=== PATIENT | male | born 1960 | race Caucasian/White ===

== ENCOUNTER 2019-02-20 16:07 | Inpatient (IN) | payer BC ==
[~2019-02-20 16:07] MED LIST: Adenosine 6 MG/2 ML VIAL ONE
[2019-02-20] MEDS ORDERED: Cefepime 2 GM VIAL ONE (16:32)
[2019-02-20 17:01] LABS: #Basophils 0.1 thou/uL (0.0-0.2); #Eosinphils 0.2 thou/uL (0.0-0.7); #Lymphocytes 1.8 thou/uL (1.20-3.40); #Neutrophils 9.3 thou/uL (1.40-6.50); %Basophils 0.7 % (0.0-1.0); %Eosinophils 1.9 % (0.0-10.0); %Lymphocytes 14.2 % (21.0-51.0); %Monocytes 8.1 % (0.0-10.0); %Neutrophils 75.1 % (42.0-75.0); Hemoglobin 14.9 g/dL (14.0-18.0); Mean Corpuscular HGB CONC 33.8 g/dL (32.0-36.0); Mean Corpuscular Hemoglobin 30.2 pg (27.0-31.0); Mean Corpuscular Volume 89.3 fL (78.0-98.0); Mean Platelet Volume 7.9 fL (7.4-10.4); Platelet Count 392 thou/uL (130-400); RBC Distribution Width 12.7 % (11.5-14.5); Red Blood Cell (RBC) Count 4.96 mill/uL (4.70-6.10); White Blood Cell (WBC) Count 12.4 thou/uL (4.8-10.8)
[2019-02-20 17:24] LABS: ALT (SGPT) 18 U/L (8-55); AST (SGOT) 17 U/L (5-34); Alkaline Phosphatase 83 U/L (40-110); Anion Gap 13 mmol/L (10-20); BUN (Urea Nitrogen) 14 mg/dL (8.4-25.7); Bilirubin, Total 0.3 mg/dL (0.2-1.2); Calc. Creatinine Clearance 0 mL/min (70-130); Calcium 9.8 mg/dL (7.8-10.44); Carbon Dioxide 28 mmol/L (22-29); Chloride 96 mmol/L (98-107); Estimated GFR-MDRD 51; Globulin 4.3 g/dL (2.4-3.5); Glucose 120 mg/dL (70-105); Potassium 4.2 mmol/L (3.5-5.1); Protein, Total 8.3 g/dL (6.0-8.3); Sodium 133 mmol/L (136-145)
--- NOTE | 2019-02-20 18:33 | HP ---
PRIMARY CARE PHYSICIAN: Arianna Lancaster MD CHIEF COMPLAINT: "I think I may have gangrene in my toe." HISTORY OF PRESENT ILLNESS: Mr. Nash is a very pleasant 58-year-old gentleman, who has a history of diabetes mellitus as well as coronary artery disease. He says that his problems with his feet started back in May. He says he typically wears work boots and he noticed that he was developing some blisters. These would kind of come and go and he says that the boots were fit relatively new and had not been worn-in. He says that he tried using bandages and antibiotic cream, but eventually the area opened up. He said originally it started with just some clear drainage and occasionally some blood, but then in the last week, it started to ooze pus and 2 days ago, he noticed that the color changed to a grayish color. This concerned him and for this reason, he came to the ER for evaluation. He originally went to Urgent Care and was given a prescription for Bactrim and Omnicef, but he says he just went today, but at some point, he must have been more concerned and came to the ER for further evaluation. He does say that he does admit to having some fever earlier in the week. He does not notice any pain as he says he has had numbness and tingling in his feet ever since 2010 when he had his bypass surgery. Otherwise, he has no other significant complaints. He also denies any known trauma to the area. REVIEW OF SYSTEMS: All systems were reviewed and are negative except for that mentioned in the history of present illness. PAST MEDICAL HISTORY: Significant for diabetes mellitus and coronary artery disease. PAST SURGICAL HISTORY: He has had an appendectomy, three-vessel CABG, and he says he has had an angiogram of his heart and was told everything was okay. He says "recently." ALLERGIES: NO KNOWN DRUG ALLERGIES. 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 He is a former smoker. He quit in 2010. He says prior to that he smoked for 30 years up to 2 packs a day. Denies any alcohol use. He is and has 2 children. FAMILY HISTORY: Significant for heart disease in his father and grandfather. CURRENT MEDICATIONS: Include; 1. Vitamin D3 of 1000 units daily. 2. Aspirin 81 mg daily. 3. Carvedilol 3.125 mg twice a day. 4. Crestor 40 mg daily. 5. Lasix 20 mg daily. 6. Metformin 1000 mg twice a day. 7. Omeprazole 20 mg daily. 8. Ramipril 2.5 mg twice daily. 9. Spironolactone 25 mg daily. 10. Glimepiride 2 mg daily. 11. Plavix 75 mg a day. 12. Recently Omnicef 300 mg twice a day. 13. Bactrim DS one tablet twice daily. PHYSICAL EXAMINATION: GENERAL: He is alert and oriented. He appears to be in no acute distress. He is well developed and well nourished. VITAL SIGNS: Blood pressure was 159/59, heart rate 85, respiratory rate of 18, and temperature is 98.8. HEENT: Pupils are equal, round, and reactive. Extraocular muscles are intact. Sclerae anicteric. Throat, no erythema, no exudates. NECK: No adenopathy. No bruits. LUNGS: Clear to auscultation. There is no wheezing, no rales, no rhonchi. CARDIOVASCULAR: He has a normal S1 and S2. I did not appreciate an S3 or S4. No murmurs, clicks, or rubs. ABDOMEN: Obese. It is soft, nontender, and nondistended. Positive for bowel sounds. There is no rebound. No guarding. No organomegaly. EXTREMITIES: On his extremities, on the left lower extremity, he has some swelling in the left leg with some erythema coming from the dorsum of the foot all the way up to the mid calf. He did not have any areas of fluctuance. There is some mild warmth. He does have a callus large on the plantar surface of both large toes and also on the lateral aspect of the toe. The area is unroof, it is about 0.5 cm deep and there is some serosanguinous drainage. I was not able to express any pus. He has very good dorsalis pedis pulses bilaterally. Good capillary refill. NEUROLOGIC: The exam is grossly nonfocal. SKIN AND INTEGUMENT: No significant skin changes other than previously mentioned under musculoskeletal. LABORATORY DATA: He had a CBC in which the white blood cell count was 12.4, hemoglobin 14.9, hematocrit is 44.3, and platelet count is 392. On his chemistry panel; the sodium is 133, potassium 4.2, chloride is 96, CO2 is 28, BUN of 14, creatinine 1.42, and glucose is 120. It is reported he had a CT scan of the foot, which was suspicious for osteomyelitis. However, I do not have that report available to me right now. ASSESSMENT AND PLAN: This is a 58-year-old gentleman, who is being admitted for osteomyelitis of the toe. He will be admitted and started on broad-spectrum IV antibiotics. Due to the evidence of osteomyelitis, we will consult General Surgery. He likely will need a Infectious Disease consult as well. He appears to have good vascular supply clinically to the foot. Therefore, we will forego doing any vascular studies at this time. 1. Diabetes mellitus. We will restart his home medications with the exception of the metformin for now and place him on a sliding scale. 2. Coronary artery disease. This appears to be clinically stable. We will get a baseline EKG, if it has not yet been done in the event that he has to undergo surgery, but he does not give any symptoms of angina. 3. Chronic heart failure, unknown type. I suspect systolic heart failure given the medications. This appears to be clinically compensated. 4. The patient will be placed on deep venous thrombosis and gastrointestinal prophylaxis. Job ID: [id number]
[2019-02-20] MEDS ORDERED: Ondansetron ODT 4 MG TAB SL PRN (19:17)
[2019-02-20] MEDS ORDERED: Ondansetron PF 4 MG/2 ML Vial IVP PRN (19:17)
[2019-02-20] MEDS ORDERED: Acetaminophen 325 MG TAB PO PRN ×2 (19:17→19:19)
[2019-02-20] MEDS ORDERED: HumaLOG 300 UNITS/3 ML VIAL SC PRN ×2 (19:19)
[2019-02-20] MEDS ORDERED: HYDROcodone/Acetaminophen 5/325 mg Tablet PO PRN (19:19)
[2019-02-20] MEDS ORDERED: Dextrose 50% Abboject 50 ML SYRINGE SLOW IVP PRN (19:19)
[2019-02-20] MEDS ORDERED: Dextrose 5% in Water 1,000 ML IV PRN (19:19)
[2019-02-20] MEDS: metroNIDAZOLE 500 MG in Premix Bag 1 BAG IVPB SCH (21:11)
[2019-02-21] MEDS: Cefepime 1 GM in Sodium Chloride 0.9% 100 ML IVPB SCH ×3 (04:38→22:11)
[2019-02-21] MEDS: metroNIDAZOLE 500 MG in Premix Bag 1 BAG IVPB SCH ×3 (05:09→22:11)
[2019-02-21 05:45] LABS: #Eosinphils 0.3 thou/uL (0.0-0.7); #Lymphocytes 1.5 thou/uL (1.20-3.40); #Neutrophils 6.1 thou/uL (1.40-6.50); %Basophils 0.4 % (0.0-1.0); %Eosinophils 3.5 % (0.0-10.0); %Lymphocytes 16.8 % (21.0-51.0); %Monocytes 10.7 % (0.0-10.0); %Neutrophils 68.6 % (42.0-75.0); Hemoglobin 13.3 g/dL (14.0-18.0); Mean Corpuscular HGB CONC 33.1 g/dL (32.0-36.0); Mean Corpuscular Hemoglobin 29.5 pg (27.0-31.0); Mean Platelet Volume 7.8 fL (7.4-10.4); Platelet Count 332 thou/uL (130-400); RBC Distribution Width 12.7 % (11.5-14.5); White Blood Cell (WBC) Count 8.9 thou/uL (4.8-10.8)
[2019-02-21 06:06] LABS: Anion Gap 10 mmol/L (10-20); BUN (Urea Nitrogen) 12 mg/dL (8.4-25.7); Calc. Creatinine Clearance 109 mL/min (70-130); Carbon Dioxide 28 mmol/L (22-29); Chloride 102 mmol/L (98-107); Estimated GFR-MDRD 63; Glucose 128 mg/dL (70-105); Potassium 4.2 mmol/L (3.5-5.1); Sodium 136 mmol/L (136-145)
[2019-02-21] MEDS: Vancomycin 1.5 GRAM/300 ML BAG 1.5 GM in Premix Bag 1 BAG IVPB SCH ×2 (08:33→19:27)
[2019-02-21] MEDS: Enoxaparin Sodium 40 MG/0.4 ML SYRINGE SC SCH (08:34)
[2019-02-21] MEDS ORDERED: Magnevist 469MG/ML 20 ML VIAL ONE (13:40)
--- NOTE | 2019-02-21 14:24 | PDOC.HOSPP ---
- Subjective Encounter Date: 02/21/19 Encounter Time: 14:22 Subjective: Mr. Nash was seen today in follow-up of diabetic foot infection. He does not have any new complaints. He notes decreased swelling in the left leg. - Objective Vital Signs & Weight: Vital Signs (12 hours) Temp Pulse Resp BP BP Pulse Ox 02/21/19 10:49 98.2 F 78 18 104/54 L 94 L 02/21/19 08:44 94 L 02/21/19 07:48 98.2 F 69 18 103/67 94 L 02/21/19 03:33 98.4 F 72 18 95/62 92 L Weight Weight 250 lb 3.594 oz I&O: 02/20/19 02/21/19 02/22/19 06:59 06:59 06:59 Intake Total 1350 Balance 1350 Result Diagrams: 02/21/19 05:30 02/21/19 05:30 Additional Labs: Accuchecks 02/21/19 02/21/19 02/20/19 10:49 03:39 20:15 POC Glucose 172 H 150 H 92 Hospitalist ROS - Medication Medications: Active Medications Generic Name Dose Route Start Last Admin Trade Name Freq PRN Reason Stop Dose Admin Enoxaparin Sodium 40 mg 02/21/19 09:00 02/21/19 08:34 Lovenox SC 40 mg 0900 ANDREZ Administration Cefepime HCl 1 gm/ Sodium 100 mls @ 200 mls/hr 02/21/19 05:00 02/21/19 04:38 Chloride IVPB 100 mls 0500,1700 ANDREZ Administration Metronidazole 500 mg/ Device 100 mls @ 100 mls/hr 02/20/19 22:00 02/21/19 13: 36 IVPB 100 mls Q8HR ANDREZ Administration Vancomycin HCl 1.5 gm/ Device 300 mls @ 200 mls/hr 02/21/19 08:00 02/21/19 08 :33 IVPB 300 mls 0800,2000 ANDREZ Administration Pantoprazole Sodium 40 mg 02/21/19 09:00 02/21/19 08:34 Protonix PO 40 mg DAILY ANDREZ Administration Sodium Chloride 10 ml 02/20/19 19:17 02/21/19 08:38 Flush - Normal Saline IVF 10 ml PRN PRN Administration Saline Flush - Exam Eye: PERRL Heart: RRR, no murmur, no gallops, no rubs, normal peripheral pulses Respiratory: CTAB, no wheezes, no rales, no ronchi, normal chest expansion Gastrointestinal: soft, non-tender, non-distended, normal bowel sounds, no palpable masses, no hepatomegaly, no splenomegaly Extremities: no cyanosis (good pulses, dorsalis pedis, bilaterally. toe is dressed), 1+ LE edema Hosp A/P (1) Diabetic infection of left foot Code(s): E11.628 - TYPE 2 DIABETES MELLITUS WITH OTHER SKIN COMPLICATIONS; L08.9 - LOCAL INFECTION OF THE SKIN AND SUBCUTANEOUS TISSUE, UNSP Status: Acute (2) Diabetes mellitus type 2 in obese Code(s): E11.69 - TYPE 2 DIABETES MELLITUS WITH OTHER SPECIFIED COMPLICATION; E66.9 - OBESITY, UNSPECIFIED Status: Acute (3) CAD (coronary artery disease) Code(s): I25.10 - ATHSCL HEART DISEASE OF [place] CORONARY ARTERY W/O ANG PCTRS Status: Chronic - Plan * Diabetic foot infection-continue IV antibiotics * MRI has been ordered by Dr. Dalton * DM-blood glucose is a bit elevated- will continue to hold Metformin for now, and continue Amaryl and SSI * Coronary Artery Disease- stable- EKG reviewed- Q wave in II and AVF, and TWI in I and AVL * General Surgery also consulted
--- NOTE | 2019-02-21 17:34 | CON ---
DATE OF CONSULTATION: 02/21/2019 REASON FOR CONSULTATION: Left first toe inflammatory process. HISTORY OF PRESENT ILLNESS: A 58-year-old gentleman with history of coronary artery disease with prior bypass graft surgery as well as type 2 diabetes mellitus and neuropathy in lower extremities, who has had a chronic area of ulceration in the medial aspect of the left first toe, which now has progressed to overt inflammatory changes with swelling of the toe, that led to admission. He has had initiation of broad-spectrum antimicrobial coverage. It does not look like any samples from the toe was submitted. The patient otherwise feels pretty well. He denies any headaches, visual symptoms, sore throat, odynophagia, or dysphagia. No cough or sputum production. No chest pain. No abdominal pain or diarrhea. No genitourinary symptoms. No other joint symptoms. No neurological symptoms other than neuropathic symptoms. PAST MEDICAL HISTORY: Includes type 2 diabetes, coronary artery disease, bypass graft surgery, and neuropathy. PAST SURGICAL HISTORY: Appendectomy. SOCIAL HISTORY: Former smoker, quit less than 10 years ago. Lives alone. 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 ALLERGIES: NONE. MEDICATIONS: 1. Tylenol. 2. [place]. 3. Ecotrin. 4. Coreg. 5. Cefepime. 6. Plavix. 7. Dextrose. 8. Lovenox. 9. Lasix. 10. Amaryl. 11. Glucagon. 12. Insulin. 13. Flagyl. 14. Vancomycin. PHYSICAL EXAMINATION: VITAL SIGNS: Normal. SKIN: Shows the area of inflammatory changes with an ulcerated area in the medial aspect of the left first toe at the base of the distal phalanx. I tried to probe the area, and I could not reach any bone. There is erythema, which is moderate around the area. The erythema extends to the forefoot medial aspect towards the third toe. LYMPHATICS: No lymphadenopathy. HEENT: Noncontributory. Teeth in good shape. NECK: Supple. No jugular vein distention. LUNGS: Symmetric, clear breath sounds. HEART: S1 and S2. Regular rate. No S3 or S4. ABDOMEN: Soft. Not distended or tender. No ascites. No bladder distention. EXTREMITIES: Pulses are excellent in the lower extremities. No edema. NEUROLOGIC: Nonfocal including cognitive function. LABORATORY DATA: White cell count 12.4 and 8.9, hemoglobin 14.9, platelets 392. Creatinine 1.42 and 1.19, GFR 63. Globulin 4.3. Microbiology with pending blood cultures, and I have submitted a sample from the foot for cultures as well. ASSESSMENT: Type 2 diabetes, neuropathy, and progression of chronic ulcer in the medial aspect of the left first toe with overt inflammatory changes and swelling. Possibility of osteomyelitis is present including septic arthritis. MRI of the left foot with contrast, and then further management decision according to the results of culture and MRI. Probably, we will need a PICC line and protracted antimicrobial therapy, but there is a chance for oral antimicrobials if MRI is negative for osteomyelitis and the cultures demonstrate susceptible pathogens. Job ID: [id number]
--- NOTE | 2019-02-21 18:25 | MRI ---
MRI left foot with and without contrast: DATE: 02/21/2019 HISTORY: 58-year-old male with diabetic foot ulcer and soft tissue edema swelling of great toe. The findings were text and to Dr. Chidi Dalton by TIGER DIRECT at 6:20 PM 02/21/2019, then by direct telephone call at 6:22 PM 02/21/2019. FINDINGS: There is diffuse bone marrow edema (T1 hypointense signal, T2 and STIR hyperintense signal), and diff usely abnormally strong marrow enhancement, involving the entire first proximal phalanx and entire first distal phalanx, representing osteomyelitis. There is diffuse soft tissue edema with enhancement surrounding these bones representing cellulitis. There is stephanie osseous destruction of portions of the medial distal tuft, medial base, and plantar la teral base of the first distal phalanx. There is a focal fluid collection in the soft tissues at the medial aspect of the great toe,. The david n portion of this abscess measures approximately 1 x 1.3 x 1.3 cm. There is extension of this fluid into the first interphalangeal joint space, representing septic arthritis. The first metatarsal is not involved. The second, third, fourth, and fifth metatarsals, cuneiforms, c uboid, and navicular, are not involved. Talus is not involved. Posterior aspect of the talus, and at posterior aspect of calcaneus were not included on the scan. IMPRESSION: 1. Osteomyelitis of the first distal phalanx and first proximal phalanx of the great toe. The involve ment of the first distal phalanx is formalin, with areas of stephanie bone destruction. 2. Septic arthritis of the first interphalangeal joint of the great toe.
[2019-02-21] MEDS: Carvedilol 3.125 MG TAB PO SCH (19:26)
[2019-02-21] MEDS: Rosuvastatin 20 MG TAB PO SCH (19:26)
--- NOTE | 2019-02-22 00:20 | PDOC.EVN ---
Event Note - Event Note Event Note: pt's heart rate was found to be in the 170's, SVT on ekg. pt was asymptomatic. bp and oxygen sat stable. Rapid respond was called and he was given 6mg of adenosine without any change. He was then given 12mg adenosine which change. will check labs and transfer him to tele. will get cardio to see him. Pt states that he has been feeling his heart beat fast at times especially before going to bed.
--- NOTE | 2019-02-22 00:38 | RAD ---
RADIOGRAPH CHEST 1 VIEW: DATE: 02/22/2019 12:18 AM HISTORY: 58-year-old male with tachycardia FINDINGS: There is no airspace density, pulmonary edema, or pneumothorax. The lateral costophrenic angles are n ot effaced. Elevated right hemidiaphragm. Sternotomy wires. IMPRESSION: 1. No acute pulmonary findings. 2. Elevated right hemidiaphragm. 3. Status post coronary artery bypass graft surgery.
[2019-02-22] MEDS: Cefepime 1 GM in Sodium Chloride 0.9% 100 ML IVPB SCH ×3 (05:24→22:50)
[2019-02-22] MEDS: metroNIDAZOLE 500 MG in Premix Bag 1 BAG IVPB SCH ×3 (06:07→23:28)
[2019-02-22 07:43] LABS: Vancomycin, Trough 15.2 ug/mL
[2019-02-22 08:42] LABS: #Basophils 0.1 thou/uL (0.0-0.2); #Eosinphils 0.2 thou/uL (0.0-0.7); #Lymphocytes 1.4 thou/uL (1.20-3.40); #Monocytes 0.7 thou/uL (0.11-0.59); #Neutrophils 5.3 thou/uL (1.40-6.50); %Basophils 0.7 % (0.0-1.0); %Eosinophils 3.3 % (0.0-10.0); %Lymphocytes 18.1 % (21.0-51.0); %Monocytes 8.8 % (0.0-10.0); %Neutrophils 69.2 % (42.0-75.0); Mean Corpuscular HGB CONC 31.7 g/dL (32.0-36.0); Mean Corpuscular Hemoglobin 28.7 pg (27.0-31.0); Mean Corpuscular Volume 90.4 fL (78.0-98.0); Mean Platelet Volume 8.1 fL (7.4-10.4); Platelet Count 371 thou/uL (130-400); RBC Distribution Width 12.8 % (11.5-14.5); Red Blood Cell (RBC) Count 4.89 mill/uL (4.70-6.10); White Blood Cell (WBC) Count 7.6 thou/uL (4.8-10.8)
[2019-02-22 09:02] LABS: Anion Gap 10 mmol/L (10-20); BUN (Urea Nitrogen) 13 mg/dL (8.4-25.7); Calc. Creatinine Clearance 112 mL/min (70-130); Calcium 9.3 mg/dL (7.8-10.44); Carbon Dioxide 29 mmol/L (22-29); Chloride 103 mmol/L (98-107); Estimated GFR-MDRD 67; Glucose 131 mg/dL (70-105); Potassium 4.3 mmol/L (3.5-5.1); Sodium 138 mmol/L (136-145)
[2019-02-22] MEDS: Carvedilol 3.125 MG TAB PO SCH ×2 (09:32→20:28)
[2019-02-22] MEDS: Glimepiride 2 MG TAB PO SCH (09:32)
[2019-02-22] MEDS: Furosemide 20 MG TAB PO SCH (09:33)
[2019-02-22] MEDS: Spironolactone 25 MG TAB PO SCH (09:33)
[2019-02-22] MEDS: Vancomycin HCl 1.5 GM in Sodium Chloride 0.9% 250 ML 300 ML IVPB SCH ×2 (09:49→21:10)
[2019-02-22] MEDS: Vancomycin 1.5 GRAM/300 ML BAG 1.5 GM in Premix Bag 1 BAG IVPB SCH (10:20)
[2019-02-22] MEDS: Enoxaparin Sodium 40 MG/0.4 ML SYRINGE SC SCH ×2 (10:20→17:37)
[2019-02-22] MEDS: Clopidogrel Bisulfate 75 MG TAB PO SCH ×2 (10:20→17:37)
[2019-02-22] MEDS: Aspirin 81 mg Enteric Coated Tablet PO SCH ×2 (10:20→17:37)
--- NOTE | 2019-02-22 10:43 | CON ---
DATE OF CONSULTATION: CONSULTING PHYSICIAN: Jozef Post MD REASON FOR CONSULTATION: Left great toe ulcer. HISTORY OF PRESENT ILLNESS: The patient is a very pleasant 58-year-old diabetic white male. He had a blister on the medial aspect of his left great toe for the past 8 months. He said it would wax and wane over the course of that time. He does have some degree of diabetic neuropathy. 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 He recently noted swelling of the left great toe with foul smelling drainage from the toe and presented to the hospital. He has been started on IV antibiotics. He notes that the foul smell has improved or resolved. PAST MEDICAL HISTORY: Diabetes mellitus and coronary artery disease. PAST SURGICAL HISTORY: Appendectomy and 3-vessel coronary artery bypass graft. ALLERGIES: NO KNOWN DRUG ALLERGIES. MEDICATIONS: 1. Carvedilol. 2. Crestor. 3. Lasix. 4. Metformin. 5. Omeprazole. 6. Ramipril. 7. Spironolactone. 8. Glimepiride. 9. Plavix. ALLERGIES: NO KNOWN DRUG ALLERGIES. PERSONAL AND SOCIAL HISTORY: He is with 2 children. 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 He is a former smoker, quit smoking 8 years ago. Prior to that, he smoked up to 2 packs per day. REVIEW OF SYSTEMS: Otherwise unremarkable. FAMILY HISTORY: Noncontributory. PHYSICAL EXAMINATION: VITAL SIGNS: He is afebrile. Vital signs are within normal limits. GENERAL: He is a well-developed, well-nourished, pleasant white male, resting in bed, in no acute distress. He is alert and oriented x3. HEAD, EYES, EARS, NOSE, AND THROAT: Unremarkable. NECK: Supple without mass or tenderness. LUNGS: Clear to auscultation throughout. CARDIAC: Regular rate and rhythm without murmur. ABDOMEN: Soft, nontender, and nondistended. EXTREMITIES: His left foot has easily palpable posterior tibial and dorsalis pedis pulses. He surprisingly has no hair anywhere on his lower leg. There is obvious swelling and deformity of the great toe. There is no significant swelling involving the rest of the foot. Examination of the ulcer on the medial aspect of the left great toe reveals an opening about a centimeter in size that I am able to pass a Q-tip through and this communicates with underlying bone, which is insensate. There is clearly osteomyelitis of the underlying bone of the great toe. I suspect this is the proximal phalanx. ASSESSMENT: The patient with left great toe osteomyelitis secondary to diabetic neuropathy. PLAN: Left great toe amputation. As there is acute infection, this will have to be performed in an open fashion with subsequent healing by secondary intention. I have discussed the operation with the patient. He understands and agrees to proceed. Job ID: [id number]
--- NOTE | 2019-02-22 11:50 | PDOC.HOSPP ---
- Subjective Encounter Date: 02/22/19 Encounter Time: 11:48 Subjective: Mr. Nash was seen today in follow-up of diabetic foot infection with osteomyelitis. He does not have any complaints today. The episode of last night was noted. He went into SVT, and was given Adenosine, and converted back to sinus. He tells me that this has happened to him before, a few times in the past 5-6 years, but had never been documented. - Objective Vital Signs & Weight: Vital Signs (12 hours) Temp Temp Pulse Pulse Pulse Pulse Pulse 02/22/19 09:32 02/22/19 09:21 98.3 F 72 02/22/19 01:25 98.1 F 102 H 02/22/19 00:19 98.2 F 184 H 182 H 184 H 118 H 02/22/19 00:11 181 H 02/22/19 00:00 98.2 F 184 H Pulse Resp Resp BP BP BP BP 02/22/19 09:32 136/70 02/22/19 09:21 16 02/22/19 01:25 18 02/22/19 00:19 181 H 18 119/81 107/75 117/72 02/22/19 00:11 02/22/19 00:00 18 BP BP BP BP Pulse Ox Pulse Ox 02/22/19 09:32 02/22/19 09:21 136/70 95 02/22/19 01:25 117/66 92 L 02/22/19 00:19 117/76 88/63 L 92 L 02/22/19 00:11 111/72 02/22/19 00:00 88/63 L 93 L Weight Weight 245 lb 5 oz I&O: 02/21/19 02/22/19 02/23/19 06:59 06:59 06:59 Intake Total 1350 1750 Balance 1350 1750 Result Diagrams: 02/22/19 08:22 02/22/19 08:22 Additional Labs: Accuchecks 02/22/19 02/22/19 02/21/19 10:57 06:20 19:40 POC Glucose 118 H 136 H 137 H 02/21/19 16:42 POC Glucose 140 H Hospitalist ROS - Medication Medications: Active Medications Generic Name Dose Route Start Last Admin Trade Name Freq PRN Reason Stop Dose Admin Aspirin 81 mg 02/22/19 09:00 02/22/19 10:20 Ecotrin PO Not Given DAILY ANDREZ Carvedilol 3.125 mg 02/21/19 21:00 02/22/19 09:32 Coreg PO 3.125 mg BID ANDREZ Administration Clopidogrel Bisulfate 75 mg 02/22/19 09:00 02/22/19 10:20 Plavix PO Not Given DAILY ANDREZ Enoxaparin Sodium 40 mg 02/21/19 09:00 02/22/19 10:20 Lovenox SC Not Given 09 ANDREZ Furosemide 20 mg 02/22/19 09:00 02/22/19 09:33 Lasix PO 20 mg DAILY ANDREZ Administration Glimepiride 2 mg 02/22/19 07:30 02/22/19 09:32 Amaryl PO 2 mg DAILY-AC ANDREZ Administration Metronidazole 500 mg/ Device 100 mls @ 100 mls/hr 02/20/19 22:00 02/22/19 06: 07 IVPB 100 mls Q8HR ANDREZ Administration Cefepime HCl 1 gm/ Sodium 100 mls @ 200 mls/hr 02/21/19 22:00 02/22/19 05:24 Chloride IVPB 100 mls Q8HR ANDREZ Administration Vancomycin HCl 1.5 gm/ Sodium 300 mls @ 200 mls/hr 02/22/19 08:00 02/22/19 09 :49 Chloride IVPB 300 mls 08,1999 ANDREZ Administration Pantoprazole Sodium 40 mg 02/21/19 09:00 02/22/19 09:32 Protonix PO 40 mg DAILY ANDREZ Administration Ramipril 2.5 mg 02/22/19 09:00 02/22/19 09:32 Altace PO 2.5 mg BID ANDREZ Administration Rosuvastatin Calcium 40 mg 02/21/19 21:00 02/21/19 19:26 Crestor PO 40 mg HS ANDREZ Administration Sodium Chloride 10 ml 02/20/19 19:17 02/21/19 08:38 Flush - Normal Saline IVF 10 ml PRN PRN Administration Saline Flush Spironolactone 25 mg 02/22/19 09:00 02/22/19 09:33 Aldactone PO 25 mg DAILY ANDREZ Administration - Exam Eye: PERRL Heart: RRR, no murmur, no gallops, no rubs, normal peripheral pulses Respiratory: CTAB, no wheezes, no rales, no ronchi, normal chest expansion, no tachypnea, normal percussion Gastrointestinal: soft, non-tender, non-distended, normal bowel sounds, no palpable masses, no hepatomegaly, no splenomegaly Extremities: no cyanosis, no clubbing, 1+ LE edema (left lower extremity, mild erythema, good dorsalis pedis pulses) Hosp A/P (1) Diabetic infection of left foot Code(s): E11.628 - TYPE 2 DIABETES MELLITUS WITH OTHER SKIN COMPLICATIONS; L08.9 - LOCAL INFECTION OF THE SKIN AND SUBCUTANEOUS TISSUE, UNSP Status: Acute (2) Diabetes mellitus type 2 in obese Code(s): E11.69 - TYPE 2 DIABETES MELLITUS WITH OTHER SPECIFIED COMPLICATION; E66.9 - OBESITY, UNSPECIFIED Status: Acute (3) CAD (coronary artery disease) Code(s): I25.10 - ATHSCL HEART DISEASE OF [place] CORONARY ARTERY W/O ANG PCTRS Status: Chronic - Plan * Diabetic foot infection-continue IV antibiotics * MRI results were noted- there was evidence of osteomyelitis in the first toe, and some septic arthritis * Plan is for amputation of the toe today * SVT- he has converted back to sinus- awaiting Cardiology evaluation * DM-blood glucose is stable
[2019-02-22] MEDS ORDERED: Fentanyl 100 MCG/2 ML VIAL ONE (12:26)
[2019-02-22] MEDS ORDERED: Adenosine 6 MG/2 ML VIAL ONE (12:47)
[2019-02-22] MEDS ORDERED: EPINEPHrine 1 MG/ML AMP ONE (13:53)
[2019-02-22] MEDS ORDERED: Bupivacaine 0.25% HCL 30 ML VIAL ONE (13:53)
[2019-02-22] MEDS ORDERED: Lidocaine 1% (PF) 30 ML VIAL ONE (13:53)
[2019-02-22] MEDS ORDERED: Lidocaine 1% w/Epinephrine 1:100K 20 ML VIAL ONE (13:53)
[2019-02-22] MEDS ORDERED: metroNIDAZOLE 500 MG/100 ML BAG ONE (14:03)
[2019-02-22] MEDS ORDERED: HYDROmorphone 2 MG/ML VIAL SLOW IVP PRN (14:37)
[2019-02-22] MEDS ORDERED: Morphine Sulfate 2 MG/ML SYRINGE SLOW IVP PRN (14:37)
[2019-02-22] MEDS ORDERED: Meperidine HCl/PF 25 MG/ML VIAL SLOW IVP PRN (14:37)
[2019-02-22] MEDS ORDERED: Promethazine HCl 25 MG/ML VIAL SLOW IVP PRN (14:37)
[2019-02-22] MEDS ORDERED: Lidocaine 1% PF 5 ML VIAL ONE (14:51)
[2019-02-22] MEDS ORDERED: Ondansetron PF 4 MG/2 ML Vial ONE (14:51)
[2019-02-22] MEDS ORDERED: PHENYLEPHRINE-NS 100 MCG/ML 10 ML SYRINGE ONE (14:51)
[2019-02-22] MEDS ORDERED: PROPOFOL 200 MG/20 ML VIAL ONE (14:51)
--- NOTE | 2019-02-22 15:39 | CON ---
DATE OF CONSULTATION: HISTORY: Rocco Nash is a 58-year-old white male, admitted with left toe abscess and is to undergo amputation of his left toe. He was found while on surgical floor to have heart rate in the 180s. He states that since bypass surgery in 09/2010 , he has had 4 such episodes. He will feel his heart beating very rapidly, but denies any chest discomfort or shortness of breath. He states that the episodes last approximately 30 minutes and usually will occur when he is trying to go to sleep at night. He was given 6 mg of adenosine followed by 12 mg of adenosine and then converted to sinus rhythm. In 09/2010, he underwent catheterization at [facility] in [facility]. He was found to have 60% to 70% left main, 60% proximal LAD, 70% mid LAD. There was total occlusion of the proximal circumflex and total occlusion of the proximal RCA. Both the vessels filled retrograde from the left. He then underwent CABG x3. Ejection fraction was 20%. He was followed for a brief time by Dr. Leyva, and his ejection fraction on echocardiogram in 01/2011 was 30% to 35%. He has since followed with Dr. Sabino Witt. Approximately 1 year ago, he states he underwent [facility] an abnormal scan. This revealed that his bypass grafts were patent and that one of the other vessels was totally occluded, but medical therapy was the best option. He also states that he has been told that his heart is damaged and weakened, but has never been advised to have a defibrillator placed. PAST MEDICAL HISTORY: 1. Diabetes. 2. Hypertension. 3. Hypercholesterolemia. MEDICATIONS: 1. Aspirin 81 daily. 2. Clopidogrel 75 mg daily. 3. Lasix 20 mg one-half tablet q.a.m. 4. Omeprazole 40 mg daily. 5. Spironolactone 25 mg q.a.m. 6. Cefdinir 300 mg b.i.d. 7. Ramipril 2.5 mg b.i.d. 8. Rosuvastatin 40 mg daily. 9. Glimepiride 2 mg daily. 10. Bactrim one b.i.d. 11. Carvedilol 12.5 b.i.d. 12. Metformin 500 mg q.i.d. ALLERGIES: NONE. OPERATIONS: 1. Appendectomy. 2. CABG. SOCIAL HISTORY: He is a former smoker. PHYSICAL EXAMINATION: VITAL SIGNS: Blood pressure 136/70 and pulse 72. HEENT: PERRL. NECK: Supple. CHEST: Clear. CARDIAC: S1 and S2 are normal without any S3, S4, or murmurs. Carotid upstrokes normal without bruits. ABDOMEN: Normal bowel sounds without tenderness or organomegaly. EXTREMITIES: No clubbing, cyanosis, or edema. He has bandages over the left great toe. NEUROLOGIC: Grossly intact. SKIN: Warm and dry. LABORATORY DATA: EKG revealed supraventricular tachycardia at a rate of 182 per minute with nonspecific ST-segment changes. When he is in sinus rhythm, he has normal sinus rhythm, possible inferior infarction. CBC is unremarkable. Sodium 138, potassium 4.3, chloride 103, carbon dioxide 29, BUN 13, and creatinine 1.13. IMPRESSION: 1. Supraventricular tachycardia with approximately 4 episodes over the last 8 years, each lasting approximately 30 minutes. This episode converted with adenosine 6 followed by 12 mg IV. 2. Status post coronary artery bypass graft x3, apparently with all grafts patent on catheterization 1 year ago. 3. Hypertension. 4. Hypercholesterolemia. 5. Diabetes. 6. Former smoker. 7. Left toe infection. PLAN: The patient is an acceptable cardiac risk to proceed with left toe amputation with IV sedation and local anesthesia. Arrangements will be made for him to be evaluated by Electrophysiology as an outpatient for ablation of his supraventricular tachycardia. A copy of his pathology laboratory technologist from [facility] will be requested. Also, he will undergo echocardiography since he did have ejection fraction of 30% to 35% in 2010. Job ID: [id number] MTDD
--- NOTE | 2019-02-22 16:03 | EKG ---
Test Reason : Blood Pressure : / mmHG Vent. Rate : 068 BPM Atrial Rate : 068 BPM P-R Int : 180 ms QRS Dur : 092 ms QT Int : 410 ms P-R-T Axes : 058 -10 094 degrees QTc Int : 435 ms Normal sinus rhythm Inferior infarct , age undetermined Cannot rule out Anterior infarct , age undetermined Abnormal ECG No previous ECGs available Confirmed by DANICA BRUCE, DR. Hanson ([id number]) on 02/22/2019 4:02:35 PM Referred By: ANDI Confirmed By:DR. Margie MISHRA MD
[2019-02-22] MEDS: metFORMIN 500 MG TAB PO SCH (17:34)
[2019-02-22] MEDS ORDERED: Enoxaparin Sodium 40 MG/0.4 ML SYRINGE SC SCH (18:00)
[2019-02-22] MEDS ORDERED: Aspirin 81 mg Enteric Coated Tablet PO SCH (18:00)
[2019-02-22] MEDS ORDERED: Clopidogrel Bisulfate 75 MG TAB PO SCH (18:00)
[2019-02-22] MEDS: Rosuvastatin 20 MG TAB PO SCH (20:28)
[2019-02-23] MEDS: Cefepime 1 GM in Sodium Chloride 0.9% 100 ML IVPB SCH ×3 (06:04→22:06)
[2019-02-23] MEDS: metroNIDAZOLE 500 MG in Premix Bag 1 BAG IVPB SCH ×3 (06:35→22:42)
--- NOTE | 2019-02-23 07:16 | PRG ---
DATE OF SERVICE: 02/22/2019 SUBJECTIVE: Mr. Nash had amputation of the left first toe after the imaging findings were reviewed by surgeon. The indication seems to have been carried out with a good margin from the infected site. The area has been left for healing by secondary intention. The patient denies any headaches, shortness of breath or chest pain. No abdominal pain or diarrhea. No genitourinary symptoms. Vital signs have been stable. O2 saturation is a little on the low side. He was transferred to the [facility] and a Cardiology evaluation has been ordered. The reason for the transfer was tachycardia. He was given adenosine twice before the rhythm was stable as echo showed an EF 45% to 50%, moderately dilated left atrium, moderate mitral regurgitation. Dr. Maldonado has been consulted. OBJECTIVE: LUNGS: clear lungs. HEART: S1, S2, regular rate. ABDOMEN: Soft, not distended or tender. EXTREMITIES: The foot is dressed. LABORATORY DATA: White cell count 7.6, hemoglobin 14, platelets 371. Renal function is stable. GFR 67. Microbiology with group B strep from one sample from February 21, another sample was again moderate gram-positive cocci in pairs, likely the same organism. 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 The margin seems to be good and this would allow transition to oral Keflex for discharge planning, 500 mg 3 times daily until the wound is well granulating. Sometimes those wounds lead to recrudescence of infection in the metatarsal remnant, so the post discharge followup is critical. Job ID: [id number]
[2019-02-23] MEDS: Glimepiride 2 MG TAB PO SCH (07:57)
[2019-02-23] MEDS: metFORMIN 500 MG TAB PO SCH ×3 (07:57→18:51)
--- NOTE | 2019-02-23 08:11 | OP ---
DATE OF PROCEDURE: 02/22/2019 PREOPERATIVE DIAGNOSIS: Left great toe osteomyelitis with a penetrating ulcer involving the bone and joint space. POSTOPERATIVE DIAGNOSIS: Left great toe osteomyelitis with a penetrating ulcer involving the bone and joint space. PROCEDURE PERFORMED: Left great toe amputation (transphalangeal). ANESTHESIA: General with laryngeal mask airway. INDICATIONS: The patient is a 58-year-old diabetic white male. He presented with a swollen,draining,obviously infected left great toe. The ulcer,when examined, proved to penetrate down into the joint space and involve the bone and the patient had evidence of osteomyelitis. He is taken to the operating room at this time for toe amputation. DESCRIPTION OF OPERATION: Informed consent was obtained. The patient was taken to the operating room where general anesthesia was obtained with the patient in supine position. Left foot was prepped with Betadine and draped in sterile fashion. Local anesthetic was infiltrated proximally using a mixture of 1% lidocaine with epinephrine and 0.25% Marcaine. Circular incision was created around the base of the toe, proximal to the level of the ulcer. Dissection was carried through the skin and subcutaneous tissue down to the proximal phalanx which was then transected. I then used the rongeurs to debride the proximal phalanx back about a cm. There was no evidence of purulence or devitalized or infected tissue at the level of transection. The wound was irrigated. Hemostasis was obtained with electrocautery. The wound care team then presented to place a wound VAC on the patient's foot. The patient tolerated the procedure well. Blood loss was negligible. He tolerated the procedure well and was taken to recovery room in stable condition. Job ID: [id number]
--- NOTE | 2019-02-23 08:29 | PDOC.HOSPP ---
- Subjective Encounter Date: 02/23/19 Encounter Time: 08:15 Subjective: Ms. Nash is a 58 y/o male on day #3 of his hospital stay for osteomyelitis of his first toe on the left foot. Today he is post operative day #1 from a left transphalageal great toe amputation. Today he says he has some pain in the left foot, poorly localized and rated at 3/10 (controlled with pain medication) . He has been walking and using the restroom on his own. He had been evaluated by cardiology for a single episode of SVT two days ago. No other concerns at this time. - Objective Vital Signs & Weight: Vital Signs (12 hours) Temp Pulse Resp BP Pulse Ox 02/23/19 07:51 98.3 F 77 17 133/71 92 L 02/23/19 03:23 97.7 F 70 17 119/63 94 L Weight Admit Weight 111.272 kg Weight 113.58 kg I&O: 02/22/19 02/23/19 02/24/19 06:59 06:59 06:59 Intake Total 1750 700 Balance 1750 700 Result Diagrams: 02/22/19 08:22 02/22/19 08:22 Additional Labs: Accuchecks 02/23/19 02/22/19 02/22/19 05:54 20:19 16:52 POC Glucose 119 H 189 H 117 H 02/22/19 10:57 POC Glucose 118 H Hospitalist ROS - Review of Systems Constitutional: denies: fever, chills Respiratory: denies: cough, shortness of breath Cardiovascular: denies: chest pain, palpitations, edema Gastrointestinal: denies: nausea, vomiting, abdominal pain, diarrhea, constipation Musculoskeletal: reports: foot pain Neurological: denies: confusion - Medication Medications: Active Medications Generic Name Dose Route Start Last Admin Trade Name Freq PRN Reason Stop Dose Admin Acetaminophen 650 mg 02/20/19 19:19 02/23/19 06:42 Tylenol PO 650 mg Q4H PRN Administration Headache/Fever/Mild Pain (1-3) Carvedilol 3.125 mg 02/21/19 21:00 02/22/19 20:28 Coreg PO 3.125 mg BID ANDREZ Administration Enoxaparin Sodium 40 mg 02/21/19 09:00 02/21/19 08:34 Lovenox SC 40 mg 0900 ANDREZ Administration Furosemide 20 mg 02/22/19 09:00 02/22/19 09:33 Lasix PO 20 mg DAILY ANDREZ Administration Glimepiride 2 mg 02/22/19 07:30 02/23/19 07:57 Amaryl PO 2 mg DAILY-AC ANDREZ Administration Metronidazole 500 mg/ Device 100 mls @ 100 mls/hr 02/20/19 22:00 02/23/19 06: 35 IVPB 100 mls Q8HR ANDREZ Administration Cefepime HCl 1 gm/ Sodium 100 mls @ 200 mls/hr 02/21/19 22:00 02/23/19 06:04 Chloride IVPB 100 mls Q8HR ANDREZ Administration Vancomycin HCl 1.5 gm/ Sodium 300 mls @ 200 mls/hr 02/22/19 08:00 02/22/19 21 :10 Chloride IVPB 300 mls 0800,1999 ANDREZ Administration Metformin HCl 500 mg 02/22/19 17:00 02/23/19 07:57 Glucophage PO 500 mg TID-WM ANDREZ Administration Pantoprazole Sodium 40 mg 02/21/19 09:00 02/22/19 09:32 Protonix PO 40 mg DAILY ANDREZ Administration Ramipril 2.5 mg 02/22/19 09:00 02/22/19 20:28 Altace PO 2.5 mg BID ANDREZ Administration Rosuvastatin Calcium 40 mg 02/21/19 21:00 02/22/19 20:28 Crestor PO 40 mg HS ANDREZ Administration Sodium Chloride 10 ml 02/20/19 19:17 02/21/19 08:38 Flush - Normal Saline IVF 10 ml PRN PRN Administration Saline Flush Spironolactone 25 mg 02/22/19 09:00 02/22/19 09:33 Aldactone PO 25 mg DAILY ANDREZ Administration - Exam General Appearance: NAD, awake alert Eye: PERRL, anicteric sclera ENT: moist mucosa Neck: supple, no lymphadenopathy Heart: RRR, no murmur Respiratory: CTAB, no wheezes Extremities: no cyanosis, no clubbing Extremities - other findings: trace lower extremity edema. Musculoskeletal - other findings: Wound vac in place on left 1st toe. Hosp A/P (1) Diabetic infection of left foot Code(s): E11.628 - TYPE 2 DIABETES MELLITUS WITH OTHER SKIN COMPLICATIONS; L08.9 - LOCAL INFECTION OF THE SKIN AND SUBCUTANEOUS TISSUE, UNSP Status: Acute (2) Diabetes mellitus type 2 in obese Code(s): E11.69 - TYPE 2 DIABETES MELLITUS WITH OTHER SPECIFIED COMPLICATION; E66.9 - OBESITY, UNSPECIFIED Status: Acute - Plan Ms. Nash is a 58 y/o male on day #3 of his hospital stay for osteomyelitis of his first toe on the left foot and had a transphalangeal amputation of the great toe yesterday. He is recovering well. -DM toe infection: Culture grew GBS. Continue antibiotics as per recommendation form Dr. Dalton. -Type 2 DM: continue accuchecks. He was more or less well controlled today. Will continue current regimen. -SVT episode: Single episode. Cardiology was consulted, Echo showed 45-50% LVEF. Patient has been advised to follow up outpatient. Will continue monitoring for now. Patient seen and examined with Kp Lopez MS-3. The patient noted some pain in his foot today when he was up ambulating, otherwise no complaints. His physical exam is notable for normal heart rate and rhythm, clear lung exam, and wound vac in place on the left foot. Plan is to consider transitioning him to an oral antibiotic, and make arrangements for out patient wound vac, and wound care. Hopefully home soon.
[2019-02-23] MEDS ORDERED: Non-Formulary Item 1 EACH (Omeprazole [Omeprazole] 20 MG) PO SCH (09:00)
[2019-02-23] MEDS: Spironolactone 25 MG TAB PO SCH (09:10)
[2019-02-23] MEDS: Clopidogrel Bisulfate 75 MG TAB PO SCH (09:10)
[2019-02-23] MEDS: Aspirin 81 mg Enteric Coated Tablet PO SCH (09:11)
[2019-02-23] MEDS: Carvedilol 3.125 MG TAB PO SCH ×2 (09:11→20:32)
[2019-02-23] MEDS: Enoxaparin Sodium 40 MG/0.4 ML SYRINGE SC SCH (09:11)
[2019-02-23] MEDS: Furosemide 20 MG TAB PO SCH (09:11)
[2019-02-23] MEDS: Vancomycin 1.5 GRAM/300 ML BAG 1.5 GM in Premix Bag 1 BAG IVPB SCH ×2 (10:26→20:28)
[2019-02-23] MEDS: Vancomycin HCl 1.5 GM in Sodium Chloride 0.9% 250 ML 300 ML IVPB SCH (16:54)
--- NOTE | 2019-02-23 17:42 | PRG ---
DATE OF SERVICE: 02/23/2019 SUBJECTIVE: Mr. Nash is postoperative day #1 from a left great toe ray amputation. Cultures were obtained from his open wound during surgery. This reveal Streptococcus and anaerobic culture is pending. A wound VAC was applied at the time of surgery. He has no complaints. He has been able to ambulate today. He was cautioned about excessive ambulation, and he will wear a postoperative shoe to protect his toe amputation site. PHYSICAL EXAMINATION: VITAL SIGNS: He is afebrile. Vital signs within normal limits. EXTREMITIES: The wound is not inspected because of the wound VAC. LABORATORY DATA: He had no new labs today. ASSESSMENT: The patient is doing well following left great toe amputation. PLAN: Wound VAC change tomorrow. I will examine him with the wound care team. Assuming the wound is healing appropriately and home wound VAC has been arranged, he should be stable for discharge home tomorrow after his wound VAC change. Job ID: [id number]
[2019-02-23] MEDS: Rosuvastatin 20 MG TAB PO SCH (20:32)
[2019-02-24] MEDS ORDERED: Cefepime 1 GM VIAL ONE (05:24)
[2019-02-24] MEDS ORDERED: metroNIDAZOLE 500 MG/100 ML BAG ONE (05:24)
[2019-02-24] MEDS: Glimepiride 2 MG TAB PO SCH ×2 (08:44→13:13)
[2019-02-24] MEDS: metFORMIN 500 MG TAB PO SCH ×4 (08:44→16:35)
[2019-02-24] MEDS: Carvedilol 3.125 MG TAB PO SCH ×3 (08:44→21:17)
[2019-02-24] MEDS: Vancomycin 1.5 GRAM/300 ML BAG 1.5 GM in Premix Bag 1 BAG IVPB SCH ×3 (10:33→22:54)
[2019-02-24] MEDS: Cefepime 1 GM in Sodium Chloride 0.9% 100 ML IVPB SCH ×3 (12:50→21:16)
[2019-02-24] MEDS: metroNIDAZOLE 500 MG in Premix Bag 1 BAG IVPB SCH ×3 (12:51→21:16)
[2019-02-24] MEDS: Enoxaparin Sodium 40 MG/0.4 ML SYRINGE SC SCH (13:13)
[2019-02-24] MEDS: Clopidogrel Bisulfate 75 MG TAB PO SCH (13:13)
[2019-02-24] MEDS: Aspirin 81 mg Enteric Coated Tablet PO SCH (13:13)
[2019-02-24] MEDS: Furosemide 20 MG TAB PO SCH (13:14)
[2019-02-24] MEDS: Spironolactone 25 MG TAB PO SCH (13:14)
--- NOTE | 2019-02-24 14:10 | PRG ---
DATE OF SERVICE: 02/24/2019 SUBJECTIVE: Mr. Nash is postoperative day #2 from left great toe amputation. He has no complaints. I saw him with the Wound Care team with a wound VAC dressing change. OBJECTIVE: VITAL SIGNS: He remains afebrile. Vital signs within normal limits. EXTREMITIES: Examination is focused upon his amputation site. There is no evidence of infection. The tissue appears viable and healing appropriately. There was minimal bleeding from the skin edge inferiorly. ASSESSMENT AND PLAN: The patient is doing well following toe amputation. Dr. Dalton, has cleared him for discharge on oral antibiotics, with which I agree. As soon as his home wound VAC is arranged and wound VAC care is arranged, then, he is stable for discharge from my standpoint. I would like to see him back in my office in about 2 weeks to reinspect the amputation site. Job ID: [id number]
--- NOTE | 2019-02-24 14:43 | PDOC.HOSPP ---
- Subjective Encounter Date: 02/24/19 Encounter Time: 14:41 Subjective: Mr. Nash was seen today in follow-up of diabetic foot infection. He does not have any complaints this morning. - Objective Vital Signs & Weight: Vital Signs (12 hours) Temp Pulse Resp BP Pulse Ox 02/24/19 11:00 98 F 69 16 106/53 L 94 L 02/24/19 08:00 98.1 F 76 16 123/58 L 93 L Weight Admit Weight 245 lb 5 oz Weight 250 lb 6.4 oz I&O: 02/23/19 02/24/19 02/25/19 06:59 06:59 06:59 Intake Total 700 Balance 700 Result Diagrams: 02/22/19 08:22 02/22/19 08:22 Additional Labs: Accuchecks 02/24/19 02/24/19 02/24/19 13:33 10:13 05:16 POC Glucose 118 H 193 H 116 H 02/23/19 02/23/19 20:40 17:13 POC Glucose 140 H 88 Hospitalist ROS - Medication Medications: Active Medications Generic Name Dose Route Start Last Admin Trade Name Freq PRN Reason Stop Dose Admin Acetaminophen 650 mg 02/20/19 19:19 02/23/19 06:42 Tylenol PO 650 mg Q4H PRN Administration Headache/Fever/Mild Pain (1-3) Hydrocodone Bitart/Acetaminophen 1 tab 02/20/19 19:19 02/23/19 20:34 [place] 5/325 PO 1 tab Q4H PRN Administration Moderate Pain (4-6) Aspirin 81 mg 02/22/19 09:00 02/24/19 13:13 Ecotrin PO Not Given DAILY [facility] Carvedilol 3.125 mg 02/21/19 21:00 02/24/19 13:13 Coreg PO Not Given BID ANDREZ Clopidogrel Bisulfate 75 mg 02/22/19 09:00 02/24/19 13:13 Plavix PO Not Given DAILY [facility] Enoxaparin Sodium 40 mg 02/21/19 09:00 02/24/19 13:13 Lovenox SC Not Given 0900 ANDREZ Furosemide 20 mg 02/22/19 09:00 02/24/19 13:14 Lasix PO Not Given DAILY ANDREZ Glimepiride 2 mg 02/22/19 07:30 02/24/19 13:13 Amaryl PO Not Given DAILY-AC ANDREZ Metronidazole 500 mg/ Device 100 mls @ 100 mls/hr 02/20/19 22:00 02/24/19 14: 00 IVPB 100 mls Q8HR ANDREZ Administration Cefepime HCl 1 gm/ Sodium 100 mls @ 200 mls/hr 02/21/19 22:00 02/24/19 13:21 Chloride IVPB 100 mls Q8HR ANDREZ Administration Vancomycin HCl 1.5 gm/ Device 300 mls @ 200 mls/hr 02/23/19 09:00 02/24/19 13 :14 IVPB Not Given Q12HR ANDREZ Insulin Human Lispro 0 units 02/20/19 19:19 02/23/19 13:14 Humalog SC 4 unit .MODERATE SLIDING SC PRN Administration Moderate Correctional Scale Metformin HCl 500 mg 02/22/19 17:00 02/24/19 13:21 Glucophage PO 500 mg TID-WM ANDREZ Administration Pantoprazole Sodium 40 mg 02/21/19 09:00 02/24/19 13:14 Protonix PO Not Given DAILY ANDREZ Ramipril 2.5 mg 02/22/19 09:00 02/24/19 13:14 Altace PO Not Given BID ANDREZ Rosuvastatin Calcium 40 mg 02/21/19 21:00 02/23/19 20:32 Crestor PO 40 mg HS ANDREZ Administration Sodium Chloride 10 ml 02/20/19 19:17 02/23/19 18:53 Flush - Normal Saline IVF 10 ml PRN PRN Administration Saline Flush Spironolactone 25 mg 02/22/19 09:00 02/24/19 13:14 Aldactone PO Not Given DAILY ANDREZ - Exam Eye: PERRL Heart: RRR, no murmur, no gallops, no rubs, normal peripheral pulses Respiratory: CTAB, no wheezes, no rales, no ronchi, normal chest expansion Gastrointestinal: soft, non-tender, non-distended, normal bowel sounds, no palpable masses, no hepatomegaly Extremities: no cyanosis, 1+ LE edema (wound vac in place) Hosp A/P (1) Diabetic infection of left foot Code(s): E11.628 - TYPE 2 DIABETES MELLITUS WITH OTHER SKIN COMPLICATIONS; L08.9 - LOCAL INFECTION OF THE SKIN AND SUBCUTANEOUS TISSUE, UNSP Status: Acute (2) Diabetes mellitus type 2 in obese Code(s): E11.69 - TYPE 2 DIABETES MELLITUS WITH OTHER SPECIFIED COMPLICATION; E66.9 - OBESITY, UNSPECIFIED Status: Acute - Plan -Diabetic foot infection- patient is s/p toe ampuation, and wound vac is in place -DM- blood glucose is stable -HTN - blood pressure is stable -Home once outpatient wound care arranged
[2019-02-24] MEDS: Vancomycin HCl 1.5 GM in Sodium Chloride 0.9% 250 ML 300 ML IVPB SCH (21:16)
[2019-02-24] MEDS: Rosuvastatin 20 MG TAB PO SCH (21:17)
[2019-02-25 04:46] VITALS: BMI 33.7
[2019-02-25] MEDS: Cefepime 1 GM in Sodium Chloride 0.9% 100 ML IVPB SCH (05:02)
[2019-02-25] MEDS: metroNIDAZOLE 500 MG in Premix Bag 1 BAG IVPB SCH (05:05)
[2019-02-25 07:34] LABS: Vancomycin, Trough 21.3 ug/mL
[2019-02-25] MEDS: Clopidogrel Bisulfate 75 MG TAB PO SCH (08:25)
[2019-02-25] MEDS: Enoxaparin Sodium 40 MG/0.4 ML SYRINGE SC SCH (08:25)
[2019-02-25] MEDS: Aspirin 81 mg Enteric Coated Tablet PO SCH (08:25)
[2019-02-25] MEDS: Carvedilol 3.125 MG TAB PO SCH (08:26)
[2019-02-25] MEDS: metFORMIN 500 MG TAB PO SCH ×2 (08:26→12:14)
[2019-02-25] MEDS: Furosemide 20 MG TAB PO SCH (08:26)
[2019-02-25] MEDS: Glimepiride 2 MG TAB PO SCH (08:26)
[2019-02-25] MEDS: Vancomycin HCl 1.5 GM in Sodium Chloride 0.9% 250 ML 300 ML IVPB SCH (08:26)
[2019-02-25] MEDS: Spironolactone 25 MG TAB PO SCH (08:26)
--- NOTE | 2019-02-25 11:44 | PDOC.HOSPP ---
- Subjective Encounter Date: 02/25/19 Encounter Time: 11:42 Subjective: Mr. Nash was seen today in follow-up of diabetic foot infection, post toe amputation. He does not have any new complaints. - Objective Vital Signs & Weight: Vital Signs (12 hours) Temp Pulse Resp BP Pulse Ox 02/25/19 07:17 98.1 F 66 17 134/77 95 02/25/19 03:20 97.5 F L 61 16 121/62 94 L 02/25/19 00:00 97.7 F 55 L 17 128/61 97 Weight Admit Weight 245 lb 5 oz Weight 249 lb I&O: 02/24/19 02/25/19 02/26/19 06:59 06:59 06:59 Intake Total 1450 Balance 1450 Result Diagrams: 02/22/19 08:22 02/22/19 08:22 Additional Labs: Accuchecks 02/25/19 02/24/19 02/24/19 05:49 20:24 17:14 POC Glucose 100 107 108 02/24/19 02/24/19 02/24/19 13:33 10:13 05:16 POC Glucose 118 H 193 H 116 H Hospitalist ROS - Medication Medications: Active Medications Generic Name Dose Route Start Last Admin Trade Name Freq PRN Reason Stop Dose Admin Acetaminophen 650 mg 02/20/19 19:19 02/23/19 06:42 Tylenol PO 650 mg Q4H PRN Administration Headache/Fever/Mild Pain (1-3) Hydrocodone Bitart/Acetaminophen 1 tab 02/20/19 19:19 02/23/19 20:34 [place] 5/325 PO 1 tab Q4H PRN Administration Moderate Pain (4-6) Aspirin 81 mg 02/22/19 09:00 02/25/19 08:25 Ecotrin PO 81 mg DAILY ANDREZ Administration Carvedilol 3.125 mg 02/21/19 21:00 02/25/19 08:26 Coreg PO 3.125 mg BID ANDREZ Administration Clopidogrel Bisulfate 75 mg 02/22/19 09:00 02/25/19 08:25 Plavix PO 75 mg DAILY ANDREZ Administration Enoxaparin Sodium 40 mg 02/21/19 09:00 02/25/19 08:25 Lovenox SC 40 mg 0900 ANDREZ Administration Furosemide 20 mg 02/22/19 09:00 02/25/19 08:26 Lasix PO 20 mg DAILY ANDREZ Administration Glimepiride 2 mg 02/22/19 07:30 02/25/19 08:26 Amaryl PO 2 mg DAILY-AC ANDREZ Administration Metronidazole 500 mg/ Device 100 mls @ 100 mls/hr 02/20/19 22:00 02/25/19 05: 05 IVPB 100 mls Q8HR ANDREZ Administration Cefepime HCl 1 gm/ Sodium 100 mls @ 200 mls/hr 02/21/19 22:00 02/25/19 05:02 Chloride IVPB 100 mls Q8HR ANDREZ Administration Vancomycin HCl 1.5 gm/ Sodium 300 mls @ 200 mls/hr 02/24/19 21:00 02/25/19 08 :26 Chloride IVPB 300 mls Q12HR ANDREZ Administration Insulin Human Lispro 0 units 02/20/19 19:19 02/23/19 13:14 Humalog SC 4 unit .MODERATE SLIDING SC PRN Administration Moderate Correctional Scale Metformin HCl 500 mg 02/22/19 17:00 02/25/19 08:26 Glucophage PO 500 mg TID-WM ANDREZ Administration Pantoprazole Sodium 40 mg 02/21/19 09:00 02/25/19 08:25 Protonix PO 40 mg DAILY ANDREZ Administration Ramipril 2.5 mg 02/22/19 09:00 02/25/19 08:25 Altace PO 2.5 mg BID ANDREZ Administration Rosuvastatin Calcium 40 mg 02/21/19 21:00 02/24/19 21:17 Crestor PO 40 mg HS ANDREZ Administration Sodium Chloride 10 ml 02/20/19 19:17 02/25/19 08:26 Flush - Normal Saline IVF 10 ml PRN PRN Administration Saline Flush Spironolactone 25 mg 02/22/19 09:00 02/25/19 08:26 Aldactone PO 25 mg DAILY ANDREZ Administration - Exam Eye: PERRL Heart: RRR, no murmur, no gallops, no rubs, normal peripheral pulses Respiratory: CTAB, no wheezes, no rales, no ronchi, normal chest expansion Hosp A/P (1) Diabetic infection of left foot Code(s): E11.628 - TYPE 2 DIABETES MELLITUS WITH OTHER SKIN COMPLICATIONS; L08.9 - LOCAL INFECTION OF THE SKIN AND SUBCUTANEOUS TISSUE, UNSP Status: Acute (2) Diabetes mellitus type 2 in obese Code(s): E11.69 - TYPE 2 DIABETES MELLITUS WITH OTHER SPECIFIED COMPLICATION; E66.9 - OBESITY, UNSPECIFIED Status: Acute - Plan -Diabetic foot infection- patient is s/p toe amputation- awaiting the placement of the home wound vac - Once this is done he can be discharged home.
[2019-02-25 13:13] VITALS: BP 126/65; TEMP 97.4
--- NOTE | 2019-02-25 21:10 | EKG ---
Test Reason : CODE GREEN Blood Pressure : / mmHG Vent. Rate : 103 BPM Atrial Rate : 103 BPM P-R Int : 194 ms QRS Dur : 080 ms QT Int : 312 ms P-R-T Axes : 060 -06 089 degrees QTc Int : 408 ms Sinus tachycardia Otherwise normal ECG When compared with ECG of 21-FEB-2019 23:46, (Unconfirmed) Vent. rate has decreased BY 79 BPM Confirmed by Caleb GUZMAN ([id number]) on 02/25/2019 9:10:07 PM Referred By: ANDI Confirmed By:Caleb GUZMAN
--- NOTE | 2019-02-25 21:10 | EKG ---
Test Reason : STAT Blood Pressure : / mmHG Vent. Rate : 182 BPM Atrial Rate : 163 BPM P-R Int : 000 ms QRS Dur : 100 ms QT Int : 266 ms P-R-T Axes : 000 -22 089 degrees QTc Int : 462 ms Supraventricular tachycardia Nonspecific ST abnormality Abnormal ECG When compared with ECG of 21-FEB-2019 05:00, (Unconfirmed) Vent. rate has increased BY 114 BPM Criteria for Inferior infarct are no longer Present Confirmed by Caleb GUZMAN ([id number]) on 02/25/2019 9:09:57 PM Referred By: ANDI Confirmed By:Caleb GUZMAN
--- NOTE | 2019-02-26 05:13 | DIS ---
DATE OF ADMISSION: 02/20/2019 DATE OF DISCHARGE: 02/25/2019 DISCHARGE DISPOSITION: Home. PRIMARY DISCHARGE DIAGNOSES: 1. Osteomyelitis of the first toe on the left foot. 2. Diabetic peripheral neuropathy. 3. Diabetes mellitus, type 2. 4. Coronary artery disease. 5. Chronic heart failure, unknown type. DISCHARGE MEDICATIONS: Include 1. Keflex 500 mg p.o. t.i.d. 2. Aldactone 25 mg daily. 3. Crestor 40 mg at bedtime. 4. Altace 2.5 mg p.o. twice a day. 5. Omeprazole 20 mg daily. 6. Metformin 500 mg t.i.d. 7. Amaryl 2 mg daily. 8. Lasix 20 mg daily. 9. Plavix 75 mg p.o. daily. 10. Vitamin D3 1000 units daily. 11. Carvedilol 3.125 mg twice a day. 12. Aspirin 81 mg a day. PROCEDURES DONE IN THE HOSPITAL: The patient had a lower extremity MRI of the left foot showing osteomyelitis of the 1st distal phalanx and 1st proximal phalanx of the great toe. There were some areas of stephanie bone destruction. There was septic arthritis in the 1st interphalangeal joint of the great toe. The patient had an echocardiogram and this demonstrated an EF of 45% to 50%, moderately dilated left atrium and there was moderate mitral regurgitation. CODE STATUS: Full code. ALLERGIES: NO KNOWN DRUG ALLERGIES. HOSPITAL COURSE: Mr. Nash is a pleasant 58-year-old gentleman, who presented to the emergency room with a toe that had become infected. He had tried treating it himself at home, but the symptoms got progressively worse. He was subsequently admitted and found to have an osteomyelitis in that 1st toe of the left foot. General Surgery as well as ID was consulted. He underwent amputation of the first toe. Clinically, he had adequate circulation with good dorsalis pedis pulses bilaterally and good capillary refill in both feet. His hospital stay was complicated by an episode of supraventricular tachycardia. He was evaluated by Cardiology with regard to this. This essentially resolved after a dose of adenosine. 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 The patient was clinically stable at the time of discharge. Job ID: [id number]
== END 2019-02-25 14:15 | disposition home or self-care (01) | DRG 617 ==
LOC: ERS 16:07 → T4-B 19:17 → 2NO 02-22 01:25
PROVIDERS: ADMIT Internal Medicine; ATTEND Internal Medicine
PROC: 0Y6Q0Z1 Detachment at Left 1st Toe, High, Open Approach (ICD-10-PCS; principal; 2019-02-22)
DX: E11.69 Type 2 diabetes mellitus with other specified complication (principal); M86.172 Other acute osteomyelitis, left ankle and foot; I47.1 Supraventricular tachycardia; M00.9 Pyogenic arthritis, unspecified; L02.612 Cutaneous abscess of left foot; I25.10 Atherosclerotic heart disease of native coronary artery without angina pectoris; E66.9 Obesity, unspecified; E78.00 Pure hypercholesterolemia, unspecified; E11.621 Type 2 diabetes mellitus with foot ulcer; L97.529 Non-pressure chronic ulcer of other part of left foot with unspecified severity; E11.628 Type 2 diabetes mellitus with other skin complications; E11.42 Type 2 diabetes mellitus with diabetic polyneuropathy; Z90.49 Acquired absence of other specified parts of digestive tract; Z95.1 Presence of aortocoronary bypass graft; Z87.891 Personal history of nicotine dependence; Z79.82 Long term (current) use of aspirin; Z79.899 Other long term (current) drug therapy; Z79.01 Long term (current) use of anticoagulants; Z79.4 Long term (current) use of insulin; Z68.33 Body mass index [BMI] 33.0-33.9, adult; Z79.02 Long term (current) use of antithrombotics/antiplatelets
CPT/HCPCS: 36415; 36416; 71045; 80048; 80053; 80202; 83735; 85025; 86140; 87040; 87070; 87077; 87186; 87205; 88305; 88311; 93005; 93010; 93306; A9579; J0131; J0153; J0171; J0692; J1650; J2001; J2405; J2704; J3010; J3370; J3490; J7050; S0020

== ENCOUNTER 2019-11-16 07:47 | Outpatient (CLI) | payer BC, OTHER ==
[2019-11-16 18:28] LABS: SARS-CoV-2 MS2 Positive; SARS-CoV-2 N Gene Negative; SARS-CoV-2 S Gene Negative; SARS-CoV-2 by NAA Not Detected (NotDetected); SARS-CoV-2 orf1ab Negative
== END 2019-11-16 07:48 | disposition home or self-care (01) ==
LOC: LABBT 07:47
PROVIDERS: ATTEND Internal Medicine Gastroenterology
DX: Z12.11 Encounter for screening for malignant neoplasm of colon (principal); Z20.828 Contact with and (suspected) exposure to other viral communicable diseases
CPT/HCPCS: 87635; U0003

== ENCOUNTER 2019-11-19 07:44 | Day surgery (SDC) | payer BC ==
[2019-11-17 11:15] VITALS: BMI 31.8
--- NOTE | 2019-11-19 03:59 | HP ---
HISTORY OF PRESENT ILLNESS: This is a 59-year-old male comes for a colonoscopy because of persistent diarrhea and also weight loss. The diarrhea is a sudden onset. The stools are watery. There is no rectal bleeding. No melena. He lost 15 pounds over the last three weeks. His stool studies came back negative. The patient also has a family history of colon cancer. The patient comes for colonoscopy because of a family history of colon cancer and all of persistent diarrhea. ALLERGIES: NONE. MEDICAL ILLNESS: 1. Diabetes mellitus. 2. Hyperlipidemia. 3. Coronary artery disease. 4. Chronic acid reflux. ALLERGIES: NONE. SOCIAL HISTORY: Former smoker. Does not drink any alcohol. PHYSICAL EXAMINATION: GENERAL: Appears comfortable. VITAL SIGNS: His weight is 241 pounds. Pulse is 70 and blood pressure 120/70. HEENT: Conjunctivae are clear. CARDIOVASCULAR SYSTEM: Normal heart sounds. LUNGS: Clear to auscultation. ABDOMEN: Soft. No organomegaly. No tenderness. No masses. ADMITTING DIAGNOSIS: A 59-year-old male with family history of colon cancer, presents with diarrhea and weight loss. PLAN: Colonoscopy. Job ID: [id number]
[2019-11-19] MEDS ORDERED: PROPOFOL 200 MG/20 ML VIAL ONE (12:03)
--- NOTE | 2019-11-19 16:00 | OP ---
DATE OF PROCEDURE: 11/19/2019 OPERATIVE PROCEDURE: Colonoscopy. PREOPERATIVE DIAGNOSES: A 59-year-old male, undergoing colonoscopy for colon cancer screening. He has high risk for colon cancer due to family history. POSTOPERATIVE DIAGNOSES: 1. Hemorrhoids. 2. Sigmoid diverticular disease. DESCRIPTION OF PROCEDURE: The patient was placed on his left lateral position and was given sedation by Anesthesia Department. A rectal exam was done before scope was advanced into the rectum. No lesions felt on rectal exam. A [employer] video colonoscope was introduced into the rectum and advanced all the way into the cecum. The prep was good. The mucosa appears normal throughout the colon with normal vascular pattern. The appendiceal orifice, ileocecal valve, and cecum well seen. No pathology seen. Withdrawal of scope from the cecum to ascending colon, hepatic flexure, no pathology seen. In the transverse colon, splenic flexure, descending colon, no lesion. The sigmoid colon showed mild diverticular disease. Retroflexion of scope in the rectum showed hemorrhoids. DISCHARGE PLANNING: This is a 59-year-old male, came for colonoscopy for colon cancer screening. The colonoscopy showed no pathology except for mild sigmoid diverticular disease. DISCHARGE RECOMMENDATIONS: 1. High-fiber diet. 2. The patient was advised to call me if he develops abdominal pain, hematochezia, or fever. 3. In the absence of any of the above symptoms, he will come back to me in 2 weeks. Recommend repeat colonoscopy in 5 years. Job ID: [id number]
== END 2019-11-19 11:00 | disposition home or self-care (01) ==
LOC: SDC 07:44
PROVIDERS: ATTEND Internal Medicine Gastroenterology
PROC: 0DJD8ZZ Inspection of Lower Intestinal Tract, Via Natural or Artificial Opening Endoscopic (ICD-10-PCS; principal; 2019-11-19)
DX: K57.30 Diverticulosis of large intestine without perforation or abscess without bleeding (principal); K64.8 Other hemorrhoids; R19.7 Diarrhea, unspecified; E11.9 Type 2 diabetes mellitus without complications; E78.5 Hyperlipidemia, unspecified; I25.10 Atherosclerotic heart disease of native coronary artery without angina pectoris; K21.9 Gastro-esophageal reflux disease without esophagitis; R63.4 Abnormal weight loss; Z68.31 Body mass index [BMI] 31.0-31.9, adult; Z87.891 Personal history of nicotine dependence; Z80.0 Family history of malignant neoplasm of digestive organs; Z79.02 Long term (current) use of antithrombotics/antiplatelets; Z79.82 Long term (current) use of aspirin; Z79.84 Long term (current) use of oral hypoglycemic drugs; Z79.899 Other long term (current) drug therapy; Z95.1 Presence of aortocoronary bypass graft
CPT/HCPCS: 36416